=== PATIENT | female | born 1990 | race Caucasian/White ===

== ENCOUNTER 2021-06-01 15:55 | Emergency (ER) | payer MEDICAID, SELFPAY ==
--- NOTE | 2021-06-01 16:04 | ED.PSYCH ---
HPI - Psych General Chief Complaint: Psychiatric Symptoms Stated Complaint: si Time Seen by Provider: 06/01/21 16:03 Source: patient Mode of arrival: ambulatory Limitations: no limitations History of Present Illness HPI Narrative: mom states the patient made SI statements yesterday they tried to get her into detox but it didn't work - came to ED for detox today complaint: anxiety and substance abuse Onset (ago): month(s) Duration: constant History of same: Yes Relieving factors: none Exacerbating factors: drug use Context: recent drug abuse Associated psychiatric symptoms: none Associated symptoms: other (constipation) Treatments prior to arrival: none Related Data Allergies Allergy/AdvReac Type Severity Reaction Status Date / Time No Known Allergies Allergy Unverified 06/12/20 17:04 Review of Systems Review of Systems: Constitutional : No Fever, No Chills ENT/Mouth : No sore throat, No Rhinorrhea Eyes: No Eye Pain, No Swelling, No Redness Cardiovascular : No Chest Pain, No SOB Respiratory : No Cough, No Sputum, No Wheezing Gastrointestinal : No Nausea, No Vomiting, No Diarrhea, pos Constipation, No abdominal Pain Genitourinary : No Dysuria, No Urinary Frequency, No Hematuria, Musculoskeletal : No joint pain, No Myalgias, No Joint Swelling Skin : No Skin Lesions, No rash Neuro : No Weakness, No Numbness, No Dizziness, No Headache Psych : pos Anxiety/Panic, No Depression, no SI/HI All other systems reviewed and are negative [facility] Past Medical History Attestation statement: The following information was validated with the patient. Medical History Opiate abuse, continuous Surgical History (Updated 06/01/21 @ 16:40 by Soha Pat DO) H/O section Social History Social History (Updated 06/01/21 @ 16:40 by Soha Pat DO) Patient Tobacco Use Status: Current everyday Tobacco user Substance Use Type: Heroin Patient : No Physical Exam Vital Signs: Vital Signs: Last Vital Signs Temp 100.1 F 06/01/21 16:31 Pulse 110 H 06/01/21 16:31 Resp 18 06/01/21 16:31 BP 141/90 H 06/01/21 16:31 Pulse Ox 100 06/01/21 16:31 Body Mass Index 19.3 Appearance: Alert. Oriented X3. No acute distress. Anxious Eyes: Pupils equal, round and reactive to light. ENT: Pharynx normal. Neck: Normal inspection. Neck supple. CVS: Normal heart rate and rhythm. Pulses normal. Respiratory: No respiratory distress. Breath sounds normal. Abdomen: Soft and nontender. Skin: Skin warm and dry. Normal skin color. Normal skin turgor. Extremities: No lower extremity edema. No calf ttp Neuro: Oriented X 3. No motor deficit. No sensory deficit. CN 2-12 intact Psych: anxious denies SI/HI Course Course Course Narrative: patient denies SI - discussed section 35 with mom, patient cleared and seen by CARE team she is not able to be sectioned at this time MDM - Psych MDM Narrative Medical decision making narrative: 30 yo female with heroin abuse c/o constipation and withdrawals for 2 to 3 days which doesn't make sense that she would be constipated she should be having diarrhea - mom reported that the patient made SI statements but the mom is very vague and the patient has not had any prior attempts, the patient is now refusing care and stating that this is not true and she has no SI, she wanted to detox but now she just wants to go home Discharge Plan Discharge Clinical Impression: Opiate dependence Qualifiers: Substance use status: with unspecified opioid-induced disorder Qualified Code(s): F11.29 - Opioid dependence with unspecified opioid-induced disorder Constipation Qualifiers: Constipation type: unspecified constipation type Qualified Code(s): K59.00 - Constipation, unspecified Patient Disposition: Home, Self-Care Instructions: Constipation (ED), Opioid Use Disorder (ED) Additional Instructions: return to ED for any worsening symptoms or concerns please go to detox
[2021-06-01 16:31] VITALS: BP 141/90; PULSE 110; RESP 18; TEMP 37.8; O2SAT 100; BMI 19.3
[2021-06-01 16:56] LABS: COVID-19 Test Negative (Negative); IDNOW Serial# 9DD0AD1C
--- NOTE | 2021-06-01 17:15 | MHC.CARE ---
CARE team support requested by ED attending physician Soha Pat for pt who was brought to ED by family after pt had reportedly made suicidal statements. Pt was crying and shouting during and after being changed over into hospital attire in the pod, demanding to leave and denying that she was suicidal. She stated that she just wanted to go to detox and that her mother was just saying that so she would get help. She was redirected to her pod room to speak with this teletypewriter installer. She shared that she had been at [facility] detox last week, however had to leave because she was too sick to keep the methadone down. This morning her drove her back out to [facility] to get her into the one bed that they reported having prior to them leaving, but by the time that they arrived the bed had already been filled. She denied any current or recent thoughts of or suicide, self harm, or attempts to end her life. She denied history of suicide attempts and reported that her only history of self harm was during her early adolescence. There is no reported history of psychiatric admissions and does not have any outpatient providers or recovery supports at this time. She is familiar with [facility] and has friends there that she can reach out to. When asked about what her plan would be if she was discharged from the ED, she reported that she would try to go to detox again in the morning and believes that when she is actually motivated to get into recovery that she is able to however has been unsuccessful with finding an available detox bed today. She reported that she was feeling sick and likely going into withdrawal, and when this teletypewriter installer asked if she intended to ride out the withdrawal symptoms and try to go to detox again in the morning, to which she replied I'll use, I'm not going to lie about it. She uses opiates intranasal and denied history of accidental overdoses. Her plan is to go to [facility] in [place] first thing in the morning in hopes of getting admitted for treatment. There are no concerns at this time with regards to pt causing intentional harm to herself or others. This teletypewriter installer consulted with Dr. Pat re: recommendation for discharge from ED and her plan to go to [facility] in the morning for detox.
== END 2021-06-01 16:52 | disposition home or self-care (01) ==
LOC: HO.ED 16:48
PROVIDERS: Emergency Provider Emergency Medicine
DX: F11.29 Opioid dependence with unspecified opioid-induced disorder (principal); K59.00 Constipation, unspecified; Z20.822 Contact with and (suspected) exposure to COVID-19; F41.9 Anxiety disorder, unspecified; F19.10 Other psychoactive substance abuse, uncomplicated; F17.210 Nicotine dependence, cigarettes, uncomplicated
CPT/HCPCS: 36415; 87635; 99283; 99284

== ENCOUNTER 2021-06-13 11:28 | Emergency (ER) | payer MEDICAID, SELFPAY | END 2021-06-13 11:43 | disposition left against medical advice (07) | LOC: HO.ED 11:43 | PROVIDERS: Emergency Provider Emergency Medicine | DX: R50.9 Fever, unspecified (principal); R06.02 Shortness of breath ==

== ENCOUNTER 2021-08-15 21:04 | Emergency (ER) | payer MEDICAID, SELFPAY ==
--- NOTE | ~2021-08-15 | XR_ITS ---
EXAMINATION: XR ABDOMEN CLINICAL INFORMATION: Constipation COMPARISON: None TECHNIQUE: Frontal view. FINDINGS: There is increased amount of stool projecting over the distribution of the colon raising suspicion for constipation. There is no evidence of bowel obstruction, however. There is no evidence of abnormal calcifications. There is no acute skeletal structure changes. There is no evidence of small-bowel obstruction. There is no free air in the abdomen. XR/XR KUB IMPRESSION: Increased amount of stool in the colon suggesting constipation. Please correlate with clinical presentation.
[2021-08-15 21:44] VITALS: BP 149/94; PULSE 114; RESP 22; TEMP 36.9; O2SAT 98; BMI 19.8
--- NOTE | 2021-08-15 21:55 | ED_ITS ---
HPI - Abdominal Pain General Chief Complaint: Abdominal Pain Stated Complaint: Constipated Time Seen by Provider: 08/15/21 21:46 Source: patient Mode of arrival: ambulatory Limitations: no limitations History of Present Illness HPI narrative: Patient comes emergency room complaining of constipation. Patient states she has been having abdominal distension for 4 days. 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 Also, patient known to use heroin, patient accepts that she is still using. Patient complaining of nausea, no vomiting. Patient is disoriented, no fever chills, no flank pain. Related Data Previous Rx's Medication Instructions Recorded magnesium citrate 300 ml PO DAILY PRN #296 ml 08/15/21 polyethylene glycol 3350 17 17 g PO BID #510 g 08/15/21 gram/dose oral powder (Miralax) Allergies Allergy/AdvReac Type Severity Reaction Status Date / Time No Known Allergies Allergy Unverified 06/12/20 17:04 Review of Systems Review of Systems Constitutional : No Weight loss, No Fever, No Chills, No Night Sweats, No Fatigue, No Malaise ENT/Mouth : No Hearing loss, No Ear Pain, No Nasal Congestion, No Sinus Pain, No Hoarseness, No sore throat, No Rhinorrhea, No Swallowing Difficulty Eyes: No Eye Pain, No Swelling, No Redness, No Foreign Body, No Discharge, No Vision Changes Cardiovascular : No Chest Pain, No SOB, No Dyspnea on Exertion, No Orthopnea, No Edema, No Palpitations Respiratory : No Cough, No Sputum, No Wheezing, No Smoke Exposure, No Dyspnea Gastrointestinal : Complaining of Nausea, No Vomiting, No Diarrhea, complaining of chronic Constipation, No abdominal Pain, No Hematochezia, No Melena, Genitourinary : no irregular bleeding, No Dysuria, No Urinary Frequency, No Hematuria, No Urinary Incontinence, No Urgency, No Flank Pain, No Urinary Flow Changes, No Hesitancy Musculoskeletal : No joint pain, No Myalgias, No Joint Swelling Skin : No Skin Lesions, No rash Neuro : No Weakness, No Numbness, No Paresthesias, No Loss of Consciousness, No Dizziness, No Headache Psych : No Anxiety/Panic, No Depression, No SI/HI/AH/VH, No Social Issues, Heme/Lymph: No Bruising, No Bleeding,No Lymphadenopathy Endocrine : No Polyuria, No Polydipsia, No Temperature Intolerance Physical Exam Vital Signs: Vital Signs: Last Vital Signs Temp 98.4 F 08/15/21 21:44 Pulse 114 H 08/15/21 21:44 Resp 22 H 08/15/21 21:44 BP 149/94 H 08/15/21 21:44 Pulse Ox 98 08/15/21 21:44 Body Mass Index 19.8 Const: Other: Appearance: Alert. Oriented X3. No acute distress. Eyes: Pupils equal, round and reactive to light. ENT: Pharynx normal. Neck: Normal inspection. Neck supple. No lymph nodes noted. No crepitus CVS: Normal heart rate and rhythm. Pulses normal. Normal S1 and S2 Respiratory: No respiratory distress. Breath sounds normal. No Wheezing. No rales Abdomen: Soft and nontender. No rigidity. No distention. No guarding, no rebound Skin: Skin warm and dry. Normal skin color. Normal skin turgor. Extremities: No lower extremity edema. No Lacerations. No Rash Neuro: Oriented X 3. No motor deficit. No sensory deficit. Moving all extermities. No slurred speech. Course Course Course Narrative: I discussed the KUB with the patient, patient does have significant constipation. I discussed with the patient that hearing does make the constipation worse. Also, patient states that she does not drink much water throughout the day. I discussed with the patient that in order for the medications to work, she needs to drink plenty of water. Patient agrees to plan. MDM - Abdominal Pain Imaging Data KUB: Radiologist's impression: FINDINGS: There is increased amount of stool projecting over the distribution of the colon raising suspicion for constipation. There is no evidence of bowel obstruction, however. There is no evidence of abnormal calcifications. There is no acute skeletal structure changes. There is no evidence of small-bowel obstruction. There is no free air in the abdomen. XR/XR KUB IMPRESSION:? Increased amount of stool in the colon suggesting constipation. Please correlate with clinical presentation.? Discharge Plan Discharge Clinical Impression: Constipation Qualifiers: Constipation type: unspecified constipation type Qualified Code(s): K59.00 - Constipation, unspecified Patient Disposition: Home, Self-Care Instructions: Constipation (ED) Additional Instructions: Please make sure you drink plenty of water. Otherwise, you medication will not be effective. Please follow-up with your primary care physician tomorrow. If you have any worsening or new symptoms, please return to the emergency room or call 911 Prescriptions: New magnesium citrate Solution 300 ml PO DAILY PRN (Reason: constipation) Qty: 296 RF: 0 polyethylene glycol 3350 [Miralax] 17 gram/dose powder 17 g PO BID Qty: 510 RF: 0 PMFSH Past Medical History Medical History Opiate abuse, continuous Surgical History H/O section Social History Social History (Updated 06/01/21 @ 16:40 by Soha Pat DO) Patient Tobacco Use Status: Current everyday Tobacco user Substance Use Type: Heroin Advance Directives: No Advance Directives Information Provided: No Patient : No
[2021-08-15] MEDS: Ondansetron ODT 4 MG TAB.RAPDIS TRANSLINGU (22:18)
[2021-08-15 22:29] LABS: Appearance Urine CLOUDY; Color Urine YELLOW; Glucose Urine UA NEG (NEG); Leukocyte Esterase Urine NEG (NEG); Nitrite Urine NEG (NEG); PH 7.5 (5.0-8.0); Urine Blood NEG (NEG); Urine Ketones NEG (NEG); Urine Protein TRACE MG/DL (NEG-TRACE)
[2021-08-15 22:48] LABS: Amphetamine Screen Urine Not Detected (Not Detect); Barbiturates, Urine Not Detected (Not Detect); Benzodiazepines Screen Urine Not Detected (Not Detect); Cannabinoid Screen Urine Not Detected (Not Detect); Cocaine Screen Urine POSITIVE (Not Detect); Fentanyl, urine POSITIVE (Not Detect); Opiate Screen Urine POSITIVE (Not Detect); Phencyclidine Screen Urine Not Detected (Not Detect)
[2021-08-16 00:19] LABS: Amorphous Sediment Urine 3+ /LPF; Mucus Urine 2+ /LPF; RBC Urine 0 /HPF (0); Squamous Epithelial Cell Urine 2+ /LPF; WBC Urine 0 /HPF (0-4)
== END 2021-08-15 22:53 | disposition home or self-care (01) ==
PROVIDERS: Emergency Provider Emergency Medicine
DX: K59.00 Constipation, unspecified (principal); F11.10 Opioid abuse, uncomplicated; F17.200 Nicotine dependence, unspecified, uncomplicated
CPT/HCPCS: 74018; 80307; 81001; 99283

== ENCOUNTER 2024-11-06 22:51 | Emergency (ER) | payer MEDICAID, SELFPAY ==
[2024-11-06 22:53] VITALS: BP 122/90; PULSE 83; O2SAT 95
[2024-11-06 22:58] VITALS: BP 118/56; PULSE 89; RESP 20; TEMP 36.7; O2SAT 98; BMI 22.2
--- NOTE | 2024-11-07 01:41 | PC.NURSE ---
this rn attempted re assessment vitals on pt, pt awake and alert but states im too sleepy and refused at this time.
--- NOTE | 2024-11-07 07:18 | ED_ITS ---
HPI - General Adult General Chief complaint: General Medical Stated complaint: in need of services Time Seen by Provider: 11/07/24 07:03 Source: patient, EMS and old records reviewed Mode of arrival: EMS Limitations: no limitations History of Present Illness ED Provider: HOLA COSBY narrative: 34 yo female with PMH of opiate abuse on methadone 70mg at [facility] has not dosed in 2 days she is homeless - at this time patient denies SI/HI. Initially wanted methadone here but declined SUDE/recovery/CARE team consult. She found out buses are running and free and walked out of the ED to go to her clinic. She has no complaints at this time MD complaint: homeless Onset (ago): week(s) Radiation: non-radiation Severity: moderate Relieving factors: none Exacerbating factors: none Associated symptoms: denies other symptoms Treatments prior to arrival: none Related Data Previous Rx's ?Medication ?Instructions ?Recorded magnesium citrate 300 ml PO DAILY PRN constipation 08/15/21 #296 mL polyethylene glycol 3350 17 17 g PO BID #510 grams 08/15/21 gram/dose oral powder (Miralax) Allergies Allergy/AdvReac Type Severity Reaction Status Date / Time No Known Allergies Allergy Verified 11/06/24 22:59 Review of Systems Review of Systems: Constitutional : No Fever, No Chills, No Fatigue ENT/Mouth : No sore throat, No Rhinorrhea Eyes: No Eye Pain, No Swelling, No Redness Cardiovascular : No Chest Pain, No SOB, No Dyspnea on Exertion Respiratory : No Cough, No Sputum Gastrointestinal : No Nausea, No Vomiting, No Diarrhea, No abdominal Pain Genitourinary : No Dysuria, No Urinary Frequency, No Hematuria, Musculoskeletal : No joint pain, No Myalgias, No Joint Swelling Skin : No Skin Lesions, No rash Neuro : No Weakness, No Numbness, No Dizziness, no Headache All other systems reviewed and are negative PMFSH Past Medical History Attestation statement: The following information was validated with the patient. Source: old records reviewed Medical History Opiate abuse, continuous Surgical History H/O section Social History Social History Patient Tobacco Use Status: Current everyday Tobacco user Substance Use Type: Heroin Advance Directives: No Advance Directives Information Provided: Yes Do you have a plan to hurt others: No Plan Physical Exam ED Vital Signs: Vital Signs - 24 hr 11/06/24 22:58 Temperature 98.0 F Pulse Rate 89 Respiratory Rate 20 Blood Pressure 118/56 L Pulse Oximetry 98 Oxygen Delivery Method Room Air BMI result Body Mass Index 22.2 Appearance: Alert. Oriented X3. No acute distress. Eyes: Pupils equal, round and reactive to light. ENT: Pharynx normal. Neck: Normal inspection. Neck supple. CVS: Normal heart rate and rhythm. Pulses normal. Respiratory: No respiratory distress. Breath sounds normal. Abdomen: Soft and nontender. Skin: Skin warm and dry. Normal skin color. Normal skin turgor. Extremities: No lower extremity edema. No calf ttp Neuro: Oriented X 3. No motor deficit. No sensory deficit. CN2-12 intact Medical Decision Making Medical Decision Making MDM Narrative: 34 yo female with PMH of opiate abuse here with c/o lack of housing but no SI/HI she wanted methadone dose but then declines and refuses dose here does not want any further eval she is alert and oriented free to leave Differential Diagnosis Differential Diagnoses: The differential diagnosis associated with the presentation includes homeless, opiate use disorder Admission/Observation Consideration of admission/observation: Escalation of care including admission/observation considered she refuses work up wants to leave no SI/HI, GCS 15 Independent Historian Clinical information obtained from an independent historian. History obtained from or confirmed by: EMS External Record Review External record reviewed: Outpatient record Social Determinants Patient?s care significantly limited by Social Determinants of Health including: Inadequate housing, Low income, Problems related to primary support group and Unemployment Discharge Plan Discharge Clinical Impression: Homelessness Patient Disposition: Home, Self-Care Additional Instructions: return for any worsening symptoms or concerns. follow up in methadone clinic Prescriptions: No Action magnesium citrate Solution 300 ml PO DAILY PRN (Reason: constipation) Qty: 296 0RF Rx Instructions: Used 1st day polyethylene glycol 3350 [Miralax] 17 gram/dose powder 17 g PO BID Qty: 510 0RF Print Language: Nepali
--- NOTE | 2024-11-07 07:29 | PC.NURSE ---
pt declining care team consult/SI/HI/methadone - electing to leave and go to methadone clinic for am dosing.
[2024-11-07 07:46] VITALS: BP 118/56; PULSE 89; RESP 20; TEMP 36.7; O2SAT 98
== END 2024-11-07 07:47 | disposition home or self-care (01) ==
PROVIDERS: Emergency Provider Emergency Medicine
DX: F11.90 Opioid use, unspecified, uncomplicated (principal); Z59.00 Homelessness unspecified; F17.210 Nicotine dependence, cigarettes, uncomplicated
CPT/HCPCS: 99282